=== PATIENT | female | born 1945 | race Caucasian/White ===

== ENCOUNTER 2018-02-13 13:16 | Outpatient (CLI) | payer MEDICARE, OTHER | END 2018-02-13 13:17 | disposition home or self-care (01) | LOC: BICMAMMO 13:16 | PROVIDERS: ATTEND Internal Medicine | DX: Z12.31 Encounter for screening mammogram for malignant neoplasm of breast (principal) | CPT/HCPCS: 77063; 77067 ==

== ENCOUNTER 2019-02-05 13:30 | Inpatient (IN) | payer MEDICARE, OTHER ==
[2019-02-12 12:46] VITALS: BMI 29.5
[2019-02-12 14:06] LABS: Hemoglobin 14.5 g/dL (12.0-16.0); Mean Corpuscular HGB CONC 33.8 g/dL (32.0-36.0); Mean Corpuscular Hemoglobin 33.8 pg (27.0-31.0); Mean Corpuscular Volume 99.9 fL (78.0-98.0); Mean Platelet Volume 8.2 fL (7.4-10.4); Platelet Count 213 thou/uL (130-400); RBC Distribution Width 11.9 % (11.5-14.5); Red Blood Cell (RBC) Count 4.28 mill/uL (4.20-5.40); White Blood Cell (WBC) Count 4.9 thou/uL (4.8-10.8)
[2019-02-12 14:13] LABS: PTT 26.2 SEC (22.9-36.1); Prothrombin Time 13.4 SEC (12.0-14.7)
[2019-02-12 14:28] LABS: Anion Gap 12 mmol/L (10-20); BUN (Urea Nitrogen) 21 mg/dL (9.8-20.1); Calc. Creatinine Clearance 86 mL/min (70-130); Calcium 9.8 mg/dL (7.8-10.44); Carbon Dioxide 28 mmol/L (23-31); Chloride 103 mmol/L (98-107); Estimated GFR-MDRD 69; Glucose 91 mg/dL (83-110); Potassium 3.8 mmol/L (3.5-5.1); Sodium 139 mmol/L (136-145)
[2019-02-17] MEDS ORDERED: Sodium Chloride 0.9% 100 ML ONE (08:25)
[2019-02-17] MEDS ORDERED: Tranexamic Acid 1,000 MG/10 ML VIAL ONE (08:25)
[2019-02-17] MEDS ORDERED: Fentanyl 100 MCG/2 ML VIAL ONE ×5 (09:14→15:37)
[2019-02-17] MEDS ORDERED: Midazolam HCl 2 mg/2 ml Vial ONE (09:14)
[2019-02-17] MEDS ORDERED: HYDROcodone/Acetaminophen 5/325 mg Tablet PO PRN ×2 (09:33)
[2019-02-17] MEDS ORDERED: Ropivacaine HCl/PF 250 ML in Premix Bag 1 BAG NERVE BLCK SCH (09:33)
[2019-02-17] MEDS ORDERED: Zolpidem Tartrate 5 MG TAB PO PRN ×3 (09:33→22:34)
[2019-02-17] MEDS ORDERED: Ondansetron PF 4 MG/2 ML Vial IVP PRN ×4 (09:33→22:34)
[2019-02-17] MEDS ORDERED: traMADol HCl 50 MG TAB PO PRN ×4 (09:33→22:34)
[2019-02-17] MEDS ORDERED: Promethazine HCl 25 MG/ML VIAL IM PRN ×4 (09:33→22:34)
[2019-02-17] MEDS ORDERED: Fentanyl 100 MCG/2 ML VIAL IV PRN (09:34)
[2019-02-17] MEDS ORDERED: Morphine 4 MG/ML VIAL SLOW IVP PRN (10:03)
[2019-02-17] MEDS ORDERED: HYDROcodone/Acetaminophen 10/325 mg Tablet PO PRN (10:03)
[2019-02-17] MEDS ORDERED: Acetaminophen 325 MG TAB PO PRN (10:03)
[2019-02-17] MEDS ORDERED: Non-Formulary Item 1 EACH (Zolpidem Tartrate [Zolpidem Tartrate] 10 MG) PO PRN (10:13)
[2019-02-17] MEDS ORDERED: Acetaminophen 1,000 MG in Premix Bag 1 BAG IVPB SCH (10:15)
[2019-02-17] MEDS ORDERED: Tranexamic Acid 1,000 MG in Sodium Chloride 0.9% 100 ML IVPB SCH ×2 (10:15→12:45)
[2019-02-17] MEDS ORDERED: Bupivacaine HCl 0.5%/Epinephrine 1:200,000/PF 30 ml Vial ONE (11:02)
[2019-02-17] MEDS ORDERED: Bupivacaine 0.25% 10 ML VIAL EPIDURAL PRN (12:22)
[2019-02-17] MEDS ORDERED: Promethazine HCl 25 MG SUPP PR PRN (12:22)
[2019-02-17] MEDS ORDERED: Naloxone HCl 0.4 mg/ml Vial IVP PRN ×2 (12:22)
[2019-02-17] MEDS ORDERED: Eucerin (Mineral Oil/Petrolatum,White) 30 gm Jar TOP PRN (12:22)
[2019-02-17] MEDS ORDERED: diphenhydrAMINE 50 MG/ML VIAL IM PRN (12:22)
[2019-02-17] MEDS ORDERED: diphenhydrAMINE 25 MG CAP PO PRN (12:22)
[2019-02-17] MEDS ORDERED: diphenhydrAMINE 50 MG/ML VIAL IVP PRN (12:22)
[2019-02-17] MEDS ORDERED: Communication Order-Pharmacy FS SCH ×2 (12:30)
[2019-02-17] MEDS ORDERED: Fentanyl 5 mcg/Bupivacaine 0.075% Cassette 100 ML EPIDURAL SCH (12:30)
[2019-02-17] MEDS ORDERED: Ropivacaine 0.5% HCl/PF (150 MG/30 ML VIAL) ONE (13:10)
[2019-02-17] MEDS ORDERED: Ropivacaine 0.2% HCl/PF (40 MG/20 ML VIAL) ONE (13:10)
[2019-02-17] MEDS ORDERED: CEFAZOLIN 2 GM in Premix Bag 1 BAG IVPB SCH (14:00)
[2019-02-17] MEDS ORDERED: PROPOFOL 200 MG/20 ML VIAL ONE (14:35)
[2019-02-17] MEDS ORDERED: Lidocaine 1% PF 5 ML VIAL ONE (14:35)
[2019-02-17] MEDS ORDERED: Dexamethasone 20 MG/5 ML VIAL ONE (14:35)
[2019-02-17] MEDS ORDERED: Ondansetron PF 4 MG/2 ML Vial ONE (14:35)
[2019-02-17] MEDS ORDERED: ePHEDrine 50 MG/ML VIAL ONE (14:35)
[2019-02-17] MEDS ORDERED: PHENYLEPHRINE-NS 100 MCG/ML 10 ML SYRINGE ONE (14:35)
[2019-02-17] MEDS ORDERED: Succinylcholine Chloride 20 MG/ML 10 ml SYRINGE FS ONE (14:35)
--- NOTE | 2019-02-17 14:44 | RAD ---
RIGHT KNEE TWO VIEW: History: Post op total knee. Comparison: None. FINDINGS: Satisfactory post-operative appearance right total knee arthroplasty and patellar resurfacing. Expect ed post-operative gas and edema. IMPRESSION: Satisfactory post-operative appearance. POS: C
--- NOTE | 2019-02-17 18:28 | OP ---
DATE OF PROCEDURE: 02/17/2019 PREOPERATIVE DIAGNOSIS: Osteoarthritis of right knee. POSTOPERATIVE DIAGNOSIS: Osteoarthritis of right knee. PROCEDURE PERFORMED: Right total knee arthroplasty. ANESTHESIA: General. HUMAN RESOURCES COMPLIANCE MANAGER: ANNA [place] COMPLICATION: None. CONDITION: Good. ESTIMATED BLOOD LOSS: Minimal. DRAINS: None. TOURNIQUET: Per Anesthesia. TECHNIQUE: Simple stain. DESCRIPTION OF PROCEDURE: The patient was taken to the operating room and placed in the supine position. After adequate general anesthesia had been achieved, the patient's right knee was examined. She had mild valgus deformity with near full extension and flexion up to 130 degrees. Ligaments were stable. Moderate effusion. She was then positioned, prepped, and draped in the usual sterile fashion. Tourniquet was placed in her right upper thigh. Leg was elevated and exsanguinated and tourniquet was inflated prior to incision. A standard midline vertical incision was made. It was taken down to subcutaneous tissue exposing the extensor mechanism. Medial parapatellar arthrotomy was performed. Patella subluxed laterally and the joint exposed. The patient had advanced tricompartmental disease with significant posterolateral erosion. Using an intramedullary guide, distal 5-degree valgus resection on the femur was performed. Using AP and epicondylar axis, proper rotation, and position, the size 4 cutting block was placed. Anterior, posterior, and chamfer cuts were completed for size 4 Evolution femur. The tibia was then subluxed anteriorly and the appropriate resection was performed using the external guide. Menisci and cruciate ligaments were debrided, and the flexion and extension gaps were then checked with a 10 mm spacer. This had good balancing of 0 and 90 degrees. The patella was then measured. Approximately, 8 mm resection was performed and a 32 mm patella was medialized. All trial components were then placed, 4 femur, 4 tibia, 32 patella, with a 10 mm bearing surface and was put through range of motion. The patient had full flexion and extension and good balancing and patellofemoral alignment and tracking. After copious irrigation, the surfaces were dried. The femur, tibia, and patella were cemented. Excess cement removed. Again, trialed with the 10 mm bearing surface, this was chosen and snapped fit after trialing. Again after copious irrigation, the arthrotomy was closed with #2 Mersilene and #1 Vicryl, the subcu with 0 and 2-0 Vicryl, and the skin with lynsey. A sterile bulky dressing was applied, and the patient was taken to Recovery in stable condition. PROGNOSIS: Good. Job ID: [id number]
[2019-02-17] MEDS: Sodium Chloride 0.9% 1,000 ML IV SCH ×2 (19:07→22:01)
[2019-02-17] MEDS: Ketorolac Tromethamine 30 MG/ML VIAL IVP PRN (19:53)
[2019-02-17] MEDS: CEFAZOLIN 2 GM in Premix Bag 1 BAG IVPB SCH (20:01)
[2019-02-17] MEDS: Senokot S 8.6-50 MG TAB PO SCH (20:02)
[2019-02-17] MEDS ORDERED: Non-Formulary Item 1 EACH (Multivitamin [Multivitamins] 1 CAP) PO SCH (21:00)
[2019-02-17] MEDS ORDERED: Aspirin 81 mg Enteric Coated Tablet PO SCH ×2 (21:00)
[2019-02-17] MEDS: Ketorolac Tromethamine 30 MG/ML VIAL IVP SCH (23:49)
[2019-02-18] MEDS: CEFAZOLIN 2 GM in Premix Bag 1 BAG IVPB SCH (03:14)
[2019-02-18] MEDS: Ketorolac Tromethamine 30 MG/ML VIAL IVP PRN (03:15)
[2019-02-18] MEDS ORDERED: HYDROcodone/Acetaminophen 5/325 mg Tablet PO PRN ×2 (03:37)
[2019-02-18 04:53] LABS: Hemoglobin 12.4 g/dL (12.0-16.0); Mean Corpuscular HGB CONC 34.2 g/dL (32.0-36.0); Mean Corpuscular Hemoglobin 34.5 pg (27.0-31.0); Mean Platelet Volume 7.7 fL (7.4-10.4); Platelet Count 175 thou/uL (130-400); RBC Distribution Width 11.7 % (11.5-14.5); Red Blood Cell (RBC) Count 3.59 mill/uL (4.20-5.40); White Blood Cell (WBC) Count 8.5 thou/uL (4.8-10.8)
[2019-02-18] MEDS: Levothyroxine Sodium 112 MCG TAB PO SCH (05:25)
[2019-02-18] MEDS: Sodium Chloride 0.9% 1,000 ML IV SCH ×2 (05:26→15:17)
[2019-02-18] MEDS: Ketorolac Tromethamine 30 MG/ML VIAL IVP SCH ×4 (05:58→23:34)
[2019-02-18] MEDS ORDERED: HYDROcodone/Acetaminophen 7.5/325 mg Tablet PO PRN (07:10)
--- NOTE | 2019-02-18 07:23 | CON ---
DATE OF CONSULTATION: 02/17/2019 REASON FOR CONSULTATION: Medical management. HISTORY OF PRESENT ILLNESS: The patient is a 74-year-old female, who was admitted to the hospital for right knee TKA (total knee arthroplasty) earlier today. The patient states that she was doing well at this time. Denies any pain. Has no complaints. Has a history of bilateral osteoarthritis, right knee being worse than left. PAST MEDICAL HISTORY: 1. Osteoarthritis. 2. Hypothyroidism. 3. Hyperlipidemia. 4. Depression. PAST SURGICAL HISTORY: 1. Cholecystectomy. 2. Left shoulder surgery. FAMILY HISTORY: Noncontributory. SOCIAL HISTORY: The patient denies tobacco use. Reports occasional alcohol use, and denies illicit substance abuse. REVIEW OF SYSTEMS: GENERAL: The patient denies fever or chills. HEENT: The patient denies eye pain or vision changes. CARDIAC: The patient denies chest pain or palpitations. RESPIRATORY: The patient denies shortness of breath. GASTROINTESTINAL: The patient denies nausea, vomiting, or abdominal pain. NEUROLOGIC: The patient denies numbness, weakness, or tingling. PSYCHIATRIC: The patient denies current symptoms of depression or anxiety. PHYSICAL EXAMINATION: VITAL SIGNS: Blood pressure 110/57, temperature 97.9, pulse 71, respirations 16, oxygen saturation 93% on room air. GENERAL: The patient is alert and oriented x3, in no apparent distress. HEENT: Normocephalic and atraumatic. Extraocular muscles intact. HEART: Regular rate and rhythm. No murmurs, rubs, or gallops. RESPIRATORY: Lungs are clear to auscultation bilaterally. No crackles, wheezes, or rhonchi. ABDOMEN: Soft and nontender to palpation. No distention. No organomegaly. EXTREMITIES: No clubbing or cyanosis. Right lower extremity bandaged postoperatively. NEUROLOGIC: Cranial nerves 2 through 12 intact grossly. No focal deficits. LABORATORY DATA: White blood cell count 4.9, hemoglobin 14.5, hematocrit 42.7, platelet count 213. Chemistry; sodium 139, potassium 3.8, chloride 103, carbon dioxide 28, creatinine 0.81, glucose 91. ASSESSMENT AND PLAN: The patient is a 74-year-old female, status post right knee TKA. 1. Status post right knee TKA. Pain management to be managed primarily by Orthopedic Surgery. Physical therapy and occupational therapy have been ordered and likely resume tomorrow. 2. Hyperlipidemia. We will resume the patient's home medications. 3. Hypothyroidism. We will resume levothyroxine. 4. Depression. Escitalopram will be resumed. DISPOSITION: Stable. Job ID: [id number]
--- NOTE | 2019-02-18 07:41 | PDOC.FM ---
- Subjective Subjective: This morning patient is complaining of R calf pain. she states it feels like a cramp and has been going on all night. She states that the muscle relaxer has been helping and just recieved a norco, she states the pain is 9/10. Nothing has seemed to make the pain worse. - Objective Vital Signs & Weight: Vital Signs (12 hours) Temp Pulse Resp BP Pulse Ox 02/18/19 04:04 98.1 F 65 20 107/65 93 L 02/18/19 00:00 98.3 F 73 20 102/58 L 93 L 02/17/19 20:00 98 F 72 20 113/67 94 L Weight Weight 90.718 kg I&O: 02/17/19 02/18/19 02/19/19 06:59 06:59 06:59 Intake Total 1750 Output Total 1450 Balance 300 Result Diagrams: 02/18/19 04:37 02/18/19 10:18 Phys Exam - Physical Examination Constitutional: NAD HEENT: moist MMs, sclera anicteric Respiratory: no wheezing, clear to auscultation bilateral Cardiovascular: RRR, no significant murmur, no rub Gastrointestinal: soft, non-tender, no distention, positive bowel sounds Musculoskeletal: no edema, pulses present Neurological: non-focal, moves all 4 limbs Psychiatric: normal affect, A&O x 3 Skin: no rash, cap refill <2 seconds Dx/Plan (1) Osteoarthritis Code(s): M19.90 - UNSPECIFIED OSTEOARTHRITIS, UNSPECIFIED SITE Status: Acute (2) Hypothyroidism Code(s): E03.9 - HYPOTHYROIDISM, UNSPECIFIED Status: Acute (3) Depression Code(s): F32.9 - MAJOR DEPRESSIVE DISORDER, SINGLE EPISODE, UNSPECIFIED Status : Acute (4) Aftercare following surgery of the musculoskeletal system Code(s): Z47.89 - ENCOUNTER FOR OTHER ORTHOPEDIC AFTERCARE Status: Acute - Plan Plan: # POD 1 R knee replacement - pain conrtol improving this AM, PRNs ordered - PT/OT consulted - will check bmp for potassium 2/2 cramping # Depression - cont escitalopram # Hypothyroidsim -home meds # HLD - home meds PPx: lovenox Diet: regular Dispo: 1-2 days Addendum - Attending - Attending Attestation Date/Time: 02/18/19 1243 I personally evaluated the patient and discussed the management with Dr. Goldstein. I agree with the History, Examination, Assessment and Plan documented above with any addition or exceptions noted below. The patient states her pain is much better since she saw Dr. Goldstein earlier this morning. She has been up walking.
[2019-02-18] MEDS: Multivitamin W/ Minerals 1 TAB PO SCH (08:34)
[2019-02-18] MEDS: Escitalopram Oxalate 20 mg Tablet PO SCH (08:35)
[2019-02-18] MEDS: Enoxaparin Sodium 40 MG/0.4 ML SYRINGE SC SCH (08:35)
[2019-02-18] MEDS: Enoxaparin Sodium 30 MG/0.3 ML SYRINGE SC SCH ×2 (08:35→20:41)
[2019-02-18] MEDS: Ferrous Gluconate 324 MG TAB PO SCH ×2 (08:35→20:41)
[2019-02-18] MEDS: Senokot S 8.6-50 MG TAB PO SCH ×2 (08:35→20:41)
[2019-02-18] MEDS ORDERED: Famotidine 20 MG TAB PO PRN (09:00)
[2019-02-18 10:59] LABS: Anion Gap 10 mmol/L (10-20); BUN (Urea Nitrogen) 16 mg/dL (9.8-20.1); Calc. Creatinine Clearance 89 mL/min (70-130); Carbon Dioxide 27 mmol/L (23-31); Chloride 104 mmol/L (98-107); Estimated GFR-MDRD 72; Glucose 137 mg/dL (83-110); Potassium 4.1 mmol/L (3.5-5.1); Sodium 137 mmol/L (136-145)
[2019-02-18] MEDS: HYDROcodone/Acetaminophen 7.5/325 mg Tablet PO PRN ×2 (12:21→23:32)
[2019-02-19] MEDS: Sodium Chloride 0.9% 1,000 ML IV SCH ×2 (02:43→13:11)
[2019-02-19] MEDS: Levothyroxine Sodium 112 MCG TAB PO SCH (06:02)
[2019-02-19] MEDS: Ketorolac Tromethamine 30 MG/ML VIAL IVP SCH ×2 (06:03→13:08)
[2019-02-19 06:16] LABS: Hemoglobin 11.8 g/dL (12.0-16.0); Mean Corpuscular HGB CONC 33.5 g/dL (32.0-36.0); Mean Corpuscular Hemoglobin 33.8 pg (27.0-31.0); Mean Platelet Volume 8.2 fL (7.4-10.4); Platelet Count 168 thou/uL (130-400); RBC Distribution Width 12.1 % (11.5-14.5); Red Blood Cell (RBC) Count 3.49 mill/uL (4.20-5.40); White Blood Cell (WBC) Count 6.3 thou/uL (4.8-10.8)
[2019-02-19] MEDS: Enoxaparin Sodium 30 MG/0.3 ML SYRINGE SC SCH (08:32)
[2019-02-19] MEDS: HYDROcodone/Acetaminophen 7.5/325 mg Tablet PO PRN ×2 (08:33→13:07)
[2019-02-19] MEDS: Multivitamin W/ Minerals 1 TAB PO SCH (08:34)
[2019-02-19] MEDS: Ferrous Gluconate 324 MG TAB PO SCH (08:34)
[2019-02-19] MEDS: Senokot S 8.6-50 MG TAB PO SCH (08:34)
[2019-02-19] MEDS: Escitalopram Oxalate 20 mg Tablet PO SCH (08:34)
[2019-02-19] MEDS: Enoxaparin Sodium 40 MG/0.4 ML SYRINGE SC SCH (08:35)
--- NOTE | 2019-02-19 08:41 | PDOC.FM ---
- Subjective Subjective: Today patient states her pain is much better controlled. She has a little more swelling around the knee but was reassured. Feels she is ready to go home today. - Objective Vital Signs & Weight: Vital Signs (12 hours) Temp Pulse Resp BP Pulse Ox 02/19/19 07:15 98.4 F 69 16 121/67 93 L 02/19/19 04:20 98.5 F 69 16 101/55 L 90 L 02/19/19 00:06 98.7 F 73 16 122/73 93 L Weight Admit Weight 90.718 kg Weight 90.718 kg I&O: 02/18/19 02/19/19 02/20/19 06:59 06:59 06:59 Intake Total 1750 1000 Output Total 1450 Balance 300 1000 Result Diagrams: 02/19/19 05:49 02/18/19 10:18 Phys Exam - Physical Examination Constitutional: NAD HEENT: PERRLA, moist MMs Respiratory: no wheezing, clear to auscultation bilateral Cardiovascular: RRR, no significant murmur, no rub Gastrointestinal: soft, non-tender, no distention, positive bowel sounds Musculoskeletal: no edema, pulses present Neurological: non-focal, moves all 4 limbs Psychiatric: normal affect, A&O x 3 Skin: no rash, cap refill <2 seconds Dx/Plan (1) Osteoarthritis Code(s): M19.90 - UNSPECIFIED OSTEOARTHRITIS, UNSPECIFIED SITE Status: Acute (2) Hypothyroidism Code(s): E03.9 - HYPOTHYROIDISM, UNSPECIFIED Status: Acute (3) Depression Code(s): F32.9 - MAJOR DEPRESSIVE DISORDER, SINGLE EPISODE, UNSPECIFIED Status : Acute (4) Aftercare following surgery of the musculoskeletal system Code(s): Z47.89 - ENCOUNTER FOR OTHER ORTHOPEDIC AFTERCARE Status: Acute - Plan Plan: # POD 2 R knee replacement - pain conrtol improving this AM, PRNs ordered - PT/OT consulted # Depression - cont escitalopram # Hypothyroidsim -home meds # HLD - home meds PPx: lovenox Diet: regular Dispo: anticipate d/c today, will sign off, please feel free to call if we can be of further assistance Addendum - Attending - Attending Attestation Date/Time: 02/19/191935 I personally evaluated the patient and discussed the management with Dr. Goldstein. I agree with the History, Examination, Assessment and Plan documented above with any addition or exceptions noted below. The patient is doing very well this morning. She has been up walking. Anticipate d/c today.
[2019-02-19 11:49] VITALS: BP 105/68; TEMP 97.7
[2019-02-20] MEDS ORDERED: Ubidecarenone 50 MG CAP PO SCH (21:00)
[2019-02-20] MEDS ORDERED: Rosuvastatin 10 MG TAB PO SCH (21:00)
== END 2019-02-19 14:30 | disposition home or self-care (01) | DRG 470 ==
LOC: SURG A 02-17 07:33 → EDSTATUS 02-17 13:00 → SURG A 02-17 16:15
PROVIDERS: ADMIT Orthopaedic Surgery; ATTEND Orthopaedic Surgery
PROC: 0SRC0J9 Replacement of Right Knee Joint with Synthetic Substitute, Cemented, Open Approach (ICD-10-PCS; principal; 2019-02-17)
DX: M17.11 Unilateral primary osteoarthritis, right knee (principal); E03.9 Hypothyroidism, unspecified; E78.5 Hyperlipidemia, unspecified; F32.9 Major depressive disorder, single episode, unspecified; Z90.49 Acquired absence of other specified parts of digestive tract; Z98.890 Other specified postprocedural states
CPT/HCPCS: 36415; 80048; 85027; 85610; 85730; 86850; 86900; 86901; 87081; C1713; C1776; J0670; J1100; J1650; J1885; J2001; J2250; J2405; J2704; J2795; J3010; J3490; J7050

== ENCOUNTER 2019-02-12 00:06 | Outpatient (CLI) | payer MEDICARE, OTHER | END 2019-02-12 00:07 | disposition home or self-care (01) | LOC: LABBT 00:06 | PROVIDERS: ATTEND Orthopaedic Surgery | DX: Z01.818 Encounter for other preprocedural examination (principal); M17.11 Unilateral primary osteoarthritis, right knee | CPT/HCPCS: 93005; 93010 ==

== ENCOUNTER 2019-02-16 11:54 | Outpatient (CLI) | payer MEDICARE, OTHER ==
--- NOTE | 2019-02-18 11:11 | MMO ---
Bilateral MAMMO Bilat Screen [facility]. CLINICAL HISTORY: Patient is 74 years old and is seen for screening. The patient has the following family history of breast cancer: aunt. The patient has no personal history of cancer. VIEWS: The views performed were: bilateral craniocaudal with tomosynthesis and bilateral mediolateral oblique with tomosynthesis. FILMS COMPARED: The present examination has been compared to prior imaging studies performed at [facility] on 11/15/2015 and 02/13/2018, and at [facility] on 07/10/2010, 06/28/2011, 09/10/2012, 09/24/2013, 10/20/2014 and 12/03/2016. MAMMOGRAM FINDINGS: There are scattered fibroglandular densities. There are stable benign appearing calcifications seen in both breasts. There are no suspicious masses, calcifications or areas of architectural distortion. There are no suspicious masses, suspicious calcifications, or new areas of architectural distortion. IMPRESSION: THERE IS NO MAMMOGRAPHIC EVIDENCE OF MALIGNANCY. A ROUTINE FOLLOW-UP MAMMOGRAM IN 1 YEAR IS RECOMMENDED. THE RESULTS OF THIS EXAM WERE SENT TO THE PATIENT. ACR BI-RADS Category 2 - Benign finding MAMMOGRAPHY NOTE: 1. A negative mammogram report should not delay a biopsy if a dominant of clinically suspicious mass is present. 2. Approximately 10% to 15% of breast cancers are not detected by mammography. 3. Adenosis and dense breasts may obscure an underlying neoplasm.
== END 2019-02-16 11:55 | disposition home or self-care (01) ==
LOC: BICMAMMO 11:54
PROVIDERS: ATTEND Internal Medicine
DX: Z12.31 Encounter for screening mammogram for malignant neoplasm of breast (principal); Z80.3 Family history of malignant neoplasm of breast
CPT/HCPCS: 77063; 77067

== ENCOUNTER 2019-04-25 12:24 | Emergency (ER) | payer MEDICARE, OTHER ==
--- NOTE | 2019-04-25 13:16 | RAD ---
EXAM: Chest 2 views: HISTORY: Cough COMPARISON: 04/20/2017 FINDINGS: Mild stable chronic changes. Heart size:Within normal limits. Lungs:Clear of acute process. Atherosclerotic changes of the aorta. No confluent pneumonia, overt edema, pleural effusion, pneumothorax, or other significant acute proce ss. IMPRESSION: Atherosclerosis of the aorta. No acute intrathoracic disease.
== END 2019-04-25 13:45 | disposition home or self-care (01) ==
LOC: SCSER 12:24
DX: J06.9 Acute upper respiratory infection, unspecified (principal); E03.9 Hypothyroidism, unspecified; E78.5 Hyperlipidemia, unspecified; F41.9 Anxiety disorder, unspecified; F32.9 Major depressive disorder, single episode, unspecified; Z79.82 Long term (current) use of aspirin; Z79.899 Other long term (current) drug therapy
CPT/HCPCS: 71046

== ENCOUNTER 2022-04-05 10:56 | Outpatient (CLI) | payer MEDICARE, OTHER | END 2022-04-05 10:57 | disposition home or self-care (01) | LOC: SCSRAD 10:56 | PROVIDERS: ATTEND Family Medicine | DX: M79.642 Pain in left hand (principal); S92.515A Nondisplaced fracture of proximal phalanx of left lesser toe(s), initial encounter for closed fracture ==

== ENCOUNTER 2022-05-17 10:25 | Outpatient (CLI) | payer MEDICARE, OTHER | END 2022-05-17 10:26 | disposition home or self-care (01) | LOC: SCSRAD 10:25 | PROVIDERS: ATTEND Family Medicine | DX: M79.672 Pain in left foot (principal); S92.512A Displaced fracture of proximal phalanx of left lesser toe(s), initial encounter for closed fracture ==